=== PATIENT | female | born 1965 | race Two or more races ===

== ENCOUNTER 2017-11-15 09:52 | Day surgery (SDC) | payer OTHER ==
[2017-11-15] VITALS (11 sets, daily range): BP systolic 108–123; BP diastolic 6–75
[~2017-11-15] VITALS: Ht 157.5 cm; Wt 82.6 kg
--- NOTE | 2017-11-15 06:43 | Anethesia Preoperative Eval ---
Anesthesia Pre-op PMH/ROS General Date of Evaluation: Nov 15, 2017 Time of Evaluation: 06:43 Anesthesiologist: chhaya ASA Score: ASA 3 Mallampati Score Class I : Soft palate, uvula, fauces, pillars visible Class II: Soft palate, uvula, fauces visible Class III: Soft palate, base of uvula visible Class IV: Only hard plate visible Mallampati Classification: Class II Surgeon: jose roberto Diagnosis: colon screening Surgical Procedure: colonoscpy Anesthesia History: none Family History: no anesthesia problems Allergies: Coded Allergies: No Known Allergies (Unverified , 11/12/17) Medications: see eMAR Past Medical History Cardiovascular: Reports: arrhythmia Pulmonary: Reports: asthma Endocrine: Reports: DM Anesthesia Pre-op Phys. Exam Physician Exam Constitutional: NAD Neurologic: CN 2-12 intact Cardiovascular: RRR Respiratory: CTA Gastrointestinal: S/NT/ND Airway Exam Mallampati Score: Class II MO: full Neck: supple TMD: 2fb ROM: full Teeth: intact Anesthesia Pre-op A/P Risk Assessment & Plan Assessment: asa3 Plan: mac Status Change Before Surgery: No Pre-Antibiotics Drug: Li Bernabe MD Nov 15, 2017 06:43
[~2017-11-15 09:52] MED LIST: Atropine Inj 1mg/10ml Syr IV PRN; DiphenhydrAMINE 50mg/ml Inj IVP PRN; Midazolam 2mg/2ml Inj IVP PRN; fentaNYL 100 mcg/2 mL IV PRN
[2017-11-15] MEDS ORDERED: Propofol 200mg/20ml IV ONE (09:53)
[2017-11-15] MEDS ORDERED: Atropine Sulfate 0.4mg/ml inj ONE (09:53)
[2017-11-15] MEDS ORDERED: NKM (10:30)
[2017-11-15] MEDS ORDERED: ATORVASTATIN CA80 MG ORAL (10:33)
--- NOTE | 2017-11-15 10:59 | Pre-Procedure Note/Attestation ---
Pre-Procedure Note/Attestation Complete Prior to Procedure Planned Procedure: not applicable Procedure Narrative: colonoscopy Indications for Procedure Pre-Operative Diagnosis: screening Attestation I attest that I discussed the nature of the procedure; its benefits; risks and complications; and alternatives (and the risks and benefits of such alternatives ), prior to the procedure, with the patient (or the patient's legal corporate sales representative). I attest that, if there was a reasonable possibility of needing a blood transfusion, the patient (or the patient's legal corporate sales representative) was given the [facility] standardized written summary, pursuant to the [place] Blood Safety Act ([place] Health and Safety Code # 1645, as amended). I attest that I re-evaluated the patient just prior to the surgery and that there has been no change in the patient's H&P, except as documented below: Adam Davila MD Nov 15, 2017 10:59
--- NOTE | 2017-11-15 11:00 | Short Stay Surgery H&P ---
History of Present Illness History of Present Illness Chief Complaint screening colon HPI Shanthi Barroso is a 52 year old female who was admitted on for Screening Colonoscopy Patient History Allergies: Coded Allergies: No Known Allergies (Unverified , 11/12/17) PAST MEDICAL HISTORY: (1) Asthma (2) Elevated cholesterol Medication History Scheduled Atorvastatin Calcium* (Lipitor*), 80 MG ORAL BEDTIME, (Reported) Review of Systems Cardiovascular: Reports: no symptoms Respiratory: Reports: no symptoms Skeletal: Reports: no symptoms Gastrointestinal: Reports: no symptoms Genitourinary: Reports: no symptoms Neurologic: Reports: no symptoms Endocrine: Reports: no symptoms Hematologic: Reports: no symptoms Physical Exam Vital Signs Last Vital Signs Date Time Temp Pulse Resp B/P (MAP) Pulse Ox O2 Delivery O2 Flow Rate FiO2 11/15/17 10:23 97.0 51 18 119/61 97 Room Air 97.0 Skin: normal HENT: normal Heart: normal Lungs: normal Abdomen: normal Extremities: normal Plan Plan of Care colonoscopy Attestation Are the patient's medical conditions optimized for surgery? Attestation Response: yes Adam Davila MD Nov 15, 2017 11:00
--- NOTE | 2017-11-15 11:24 | Endoscopy Procedure Note ---
Endoscopy Procedure Note General Indication for Procedure: screening Procedures Performed: colonoscopy Operative Findings/Diagnosis: one polyp Specimen: yes Pt Tolerated Procedure Well: Yes Estimated Blood Loss: none Anesthesia Anesthesiologist: chhaya Anesthesia: MAC Inserted Devices Implant(s) used?: No Quality Quality of Bowel Preparation: Good Did scope reach the cecum?: Yes Was there any complications?: No GI Core Measures 50 yrs or older w/o bx or poly: No 10yrs. F/U not recommended: Yes If not recommended, why?: Above average risk 10 yrs. F/U needed: Yes 18 years or older w/prev. colo: No Adam Davila MD Nov 15, 2017 11:24
--- NOTE | 2017-11-15 18:15 | Procedure Note ---
DATE OF PROCEDURE: 11/15/2017 PROCEDURE: Colonoscopy with biopsy. SURGEON: Adam Davila M.D. ANESTHESIA: Per Dr. Godfrey. INSTRUMENT: Olympus adult flexible colonoscope. INDICATIONS: Screening colonoscopy. The procedure, risks, benefits, and possible consequences, including hemorrhage, aspiration, perforation and infection, and alternative treatments, were explained to the patient/legal guardian by Dr. Adam Davila and the patient/legal guardian understood and accepted these risks. DESCRIPTION OF PROCEDURE: After informed consent was obtained and the patient was adequately sedated, first rectal exam was performed, which was positive for small internal hemorrhoids. Then, the scope was advanced from the rectum into the cecum and then subsequently terminal ilium. Quality of prep was good. The patient had one small polyp in the cecum, removed with the cold biopsy forceps technique. The rest of the colonic and terminal ilium examination was grossly within normal limit. On retroflexion of rectum, there was small internal hemorrhoid. SUMMARY OF FINDINGS: 1. Colon polyp in the cecum, otherwise, normal colonoscopic examination. 2. Small internal hemorrhoids. RECOMMENDATIONS: 1. Follow up biopsies and treat accordingly. 2. We will recommend repeat colonoscopy in 5 years. Adam Davila M.D. DR: ARI JOB#: [id number] CC:
--- NOTE | 2017-11-15 19:45 | Immediate Post-Op Evaluation ---
Immediate Post-Op Evalulation Immediate Post-Op Evalulation Procedure: colonoscopy Date of Evaluation: Nov 15, 2017 Time of Evaluation: 11:40 IV Fluids: 150ml 0.9ns Blood Products: none Estimated Blood Loss: negligible Blood Pressure Systolic: 108 Blood Pressure Diastolic: 63 Pulse Rate: 56 Respiratory Rate: 18 O2 Sat by Pulse Oximetry: 100 Temperature (Fahrenheit): 97.7 Pain Score (1-10): 0 Nausea: No Vomiting: No Complications none Patient Status: awake, reacts, patent Hydration Status: adequate Drug: Li Bernabe MD Nov 15, 2017 19:45
--- NOTE | 2017-11-15 19:46 | 48 Hour Post Anesthesia Eval ---
Post Anesthesia Evaluation Procedure: colonoscopy Date of Evaluation: Nov 15, 2017 Time of Evaluation: 11:42 Blood Pressure Systolic: 112 0: 66 Pulse Rate: 54 Respiratory Rate: 18 Temperature (Fahrenheit): 97.7 O2 Sat by Pulse Oximetry: 100 Airway: patent Nausea: No Vomiting: No Pain Intensity: 0 Hydration Status: adequate Cardiopulmonary Status: stable Mental Status/LOC: patient returned to baseline Post-Anesthesia Complications: none Follow-up care needed: N/A Li Godfrey MD Nov 15, 2017 19:46
--- NOTE | 2017-11-16 14:11 | Cardiology Report ---
APPROVED REPORT EKG Measurement Heart [id number] NM [id number] Sinus bradycardia Otherwise normal ECG
== END 2017-11-15 13:10 | disposition home or self-care (01) ==
LOC: GAS 09:52
DX: Z12.11 Encounter for screening for malignant neoplasm of colon (principal); D12.0 Benign neoplasm of cecum; K64.8 Other hemorrhoids; R00.1 Bradycardia, unspecified; E78.00 Pure hypercholesterolemia, unspecified; E11.9 Type 2 diabetes mellitus without complications
CPT/HCPCS: 45380; 82962; 93005; J0461; J2704; 94003; 94150